=== PATIENT | male | born 1960 | race Caucasian/White ===

== ENCOUNTER 2020-11-17 14:11 | Emergency (ER) | payer OTHER ==
[~2020-11-17] VITALS: Ht 180.3 cm; Wt 97.5 kg
[2020-11-17 15:20] VITALS: BP 168/79
== END 2020-11-17 15:20 | disposition home or self-care (01) ==
LOC: ER 14:11
DX: U07.1 COVID-19 (principal); B20 Human immunodeficiency virus [HIV] disease; I10 Essential (primary) hypertension; E78.5 Hyperlipidemia, unspecified

== ENCOUNTER 2020-11-20 22:02 | Inpatient (IN) | payer OTHER ==
[~2020-11-20] VITALS: Ht 180.3 cm; Wt 103.9 kg
[2020-11-20 22:09] VITALS: BP 113/69
[2020-11-20 23:14] LABS: HEMATOCRIT 50.1 % (42.0-52.0); HEMOGLOBIN 17.2 gm/dL (14.0-18.0); MCH 33.1 pg (26.0-34.0); MCHC 34.3 g/dL (28.0-37.0); MCV 96.7 fL (80.0-100.0); RBC 5.18 mil/uL (4.50-6.00); RDW 13.6 % (10.5-14.5); WBC 5.8 thou/uL (4.0-11.0)
[2020-11-20 23:17] LABS: ANION GAP 11 mmol/L (7-16); BUN 24 mg/dL (7-18); CALCIUM 8.7 mg/dL (8.5-10.1); CHLORIDE 90 mmol/L (98-107); CO2 28 mmol/L (21-32); CREATININE 1.9 mg/dL (0.7-1.3); GLUCOSE 323 mg/dL (74-106); POTASSIUM 4.4 mmol/L (3.5-5.1); SODIUM 129 mmol/L (136-145)
[2020-11-20 23:27] LABS: TROPONIN-I <0.06 ng/mL (<0.06)
[2020-11-21 14:49] VITALS: BP 127/76
[2020-11-21 16:11] VITALS: BP 134/802
[2020-11-21 20:50] LABS: ALBUMIN 2.9 g/dL (3.4-5.0); DIRECT BILIRUBIN 0.1 mg/dL (<0.1-0.2); TOTAL BILIRUBIN 0.4 mg/dL (0.2-1.0); TOTAL PROTEIN 7.1 g/dL (6.4-8.2)
[2020-11-21 21:34] VITALS: BP 1252/86
[2020-11-22 03:55] VITALS: BP 111/68
--- NOTE | 2020-11-22 05:51 | NUR ---
FOLLOWING POC WITH REMDESIVIR, ZOSIN, AND VANCO GIVEN. PT UP TO BATHROOM AD CHRISTIE. VSS OVERNIGHT WITH NO FEVERS AND REMAINS ON 3L VIA NC. PT IS IN GOOD SPIRITS AND HAS NO COMPLAINTS.
[2020-11-22 06:11] LABS: HEMATOCRIT 44.3 % (42.0-52.0); MCH 32.9 pg (26.0-34.0); MCV 96.9 fL (80.0-100.0); RBC 4.58 mil/uL (4.50-6.00); RDW 13.7 % (10.5-14.5); WBC 8.2 thou/uL (4.0-11.0)
[2020-11-22 06:30] LABS: HEMOGLOBIN 15.1 gm/dL (14.0-18.0)
[2020-11-22 06:35] LABS: ALBUMIN 2.9 g/dL (3.4-5.0); CALCIUM 8.5 mg/dL (8.5-10.1); CREATININE 1.6 mg/dL (0.7-1.3); POTASSIUM 4.6 mmol/L (3.5-5.1); TOTAL BILIRUBIN 0.4 mg/dL (0.2-1.0)
--- NOTE | 2020-11-22 07:17 | EKG ---
[place] [address] [facility] [place] [address] ELECTROCARDIOGRAM REPORT Name: DEB ELLER Room #: 360-P ADM IN M.R.#: [id number] Admission: 11/21/20 Attend Phys: Lucy Heaton Discharge: Date of : 58 Report #: [id number] [facility] ED Test Date: 2020-11-20 Test Time: 22:08:12 Pat Name: DEB ELLER Department: Room: 360 Gender: M Business Process Consultant: [facility] : 1960 Requested By: Mike Nieves Order Number: [id number] MD: Franklin Perez Measurements Intervals [place] Rate: 107 P: 47 [place]: 144 QRS: 11 QRSD: 76 T: 64 QT: 347 QTc: 463 Interpretive Statements Sinus tachycardia Probable left atrial enlargement Abnormal R-wave progression, late transition Baseline wander in lead(s) V2 No previous ECG available for comparison Electronically Signed On 11-22-2020 7:17:25 [employer] by Franklin Perez [email or web address] <ELECTRONICALLY SIGNED> By: Franklin Perez MD, [facility] 11/22/20 0717 07 Franklin Perez MD, FACC /EPI
--- NOTE | 2020-11-22 07:42 | HC ---
[facility] [address] [place] [address] CONSULTATION Name: DEB ELLER Room #: 360-P ADM IN M.R.#: [id number] Admission: 11/21/20 Attend Phys: Lucy Heaton Discharge: Date of : 58 Report #: [id number] THIS REPORT FOR: cc: KEILY - Robyn family physician/PCP KEILY - No family physician/PCP Darwin Coello MD ~ DATE OF SERVICE: 11/21/2020 INFECTIOUS DISEASE CONSULTATION ATTENDING PHYSICIAN: Dr. Heaton. REASON FOR EVALUATION: COVID-19 infection, complicated by pneumonitis, respiratory failure, also HIV. HISTORY OF PRESENT ILLNESS: Chart reviewed, patient examined. This is a 60-year-old gentleman who was actually primary residence in [place], who developed dyspnea with progressive cough, fever, flu-like symptoms over the course of last several days. He was evaluated in the Emergency Room previously on the , however, due to worsening signs and symptoms did return. He was given supplemental oxygen at 2 liters, which helped his saturations which were borderline. He is clinically feeling better. Additional evaluation noted chest x-ray with bilateral interstitial infiltrates. He was found to be hyponatremic with sodium of 129 and creatinine was elevated at 1.9, glucose is 323. Initiated therapy with vancomycin, Zosyn as well as given doses of dexamethasone, methylprednisolone. In review of his HIV status, he does have CD4 count well within normal range, although he does have a measurable viral load and had a recent change of his HAART therapy to Prezcobix and Biktarvy. ALLERGIES: None known. CURRENT MEDICATIONS: Includes the above-noted Biktarvy, Prezcobix as well as Zosyn, vancomycin, subcutaneous heparin, ascorbic acid, pantoprazole, zinc, acetaminophen, ondansetron as needed. PAST MEDICAL HISTORY: As described above, history of HIV as well as hypertension, hyperlipidemia. SOCIAL HISTORY: No illicit drug use. No tobacco or ethanol use. FAMILY HISTORY: Noncontributory. REVIEW OF SYSTEMS: Otherwise, unremarkable. PHYSICAL EXAMINATION: [facility] [address] [place] [address] CONSULTATION Name: DEB ELLER Room #: 360-[facility] IN M.R.#: [id number] Admission: 11/21/20 Attend Phys: Lucy Heaton Discharge: Date of : 58 Report #: [id number] GENERAL: He is pleasant, alert, cooperative, in mild distress. He appears to be well nourished. VITAL SIGNS: Recently temperature of 100.1, pulse 86, respirations 28, blood pressure 122/71. SKIN: Warm, dry, no rashes. HEENT: Normocephalic. Extraocular muscles intact. His nasal cannula in place. NECK: Supple. LUNGS: Diminished breath sounds. Few scattered crackles. HEART: Regular. I do not appreciate a murmur. ABDOMEN: Soft, nontender, nondistended. EXTREMITIES: No cyanosis. GENITOURINARY AND RECTAL: Deferred. LABORATORY DATA: MRSA PCR screen was negative. Sed rate of 26. Procalcitonin of 0.3. Ferritin 931. COVID antigen was positive. Electrolytes: Sodium 129, potassium 4.4, chloride 90, bicarbonate is 28, anion gap of 11, BUN and creatinine 24 and 1.9. Estimated GFR of 36. Chest x-ray as described above. CBC: White count of 5.8, H and H 17.2 and 50.1, platelets of 129. ASSESSMENT AND PLAN: COVID-19 infection, complicated by pneumonitis and respiratory failure. Secondly, he has human immunodeficiency virus well managed, although had a recent change in regimen. We will continue therapy directed at the coronavirus. We will add ivermectin, remdesivir as well as vitamins including cholecalciferol and thiamine, addition to the ascorbic acid and zinc. At this point, he is not overtly toxic, but certainly there was a concern about possible diabetes as well. We will check hemoglobin A1c and likely continue corticosteroids. Monitor expectantly. Continue supportive care with supplemental oxygen as required. <ELECTRONICALLY SIGNED> By: Darwin Coello MD 11/22/20 0742 1608 27 Darwin Coello MD /nt
[2020-11-22 08:19] VITALS: BP 118/76
[2020-11-22 11:53] VITALS: BP 120/71
[2020-11-22] MEDS ORDERED: LISINOPRIL-HCT1 EAC2 PO (12:53)
[2020-11-22] MEDS ORDERED: ROSUVASTATIN CA20 MG PO (12:55)
[2020-11-22] MEDS ORDERED: VALTREX 500 MG500 M1 (12:57)
[2020-11-22] MEDS ORDERED: PREZCOBIX 8001 EACH (12:59)
[2020-11-22] MEDS ORDERED: BIKTARVY 50-201 EACH (13:00)
--- NOTE | 2020-11-22 14:40 | NUR ---
INITIAL ASSESSMENT: MERCEDES reviewed chart and spoke with nursing and attending physician. Pt was admitted from home due to pneumonia. Pt placed in Enhanced Isolation due to COVID-19. Pt has tested positive last week. Pt is requiring 5L of O2. Pt is on IV abx and IV steroids. Pt is completing courses of Remdesivir and Ivermectin. MERCEDES spoke with pt via phone. Introduced role of SW. Pt is alert/orientated x 4. Pt reports he lives in [place] and has plans to go back on 11/27. However, pt is able to stay in longer if needed. Prior to admission, pt was independent with ADLs. No use of DME. No hx of services or post-acute placement. Pt was not on O2 prior to admission. Will need rest/exercise oximtery to determine home O2 needs. Plan is for pt to discharge home when medically stable. MERCEDES is following to assist as needed with discharge planning.
[2020-11-22 15:46] VITALS: BP 113/72
--- NOTE | 2020-11-22 17:18 | NUR ---
RN ASSUMED PT'S CARE AT 0700AM, PT IS A&OX3, PT IS ON O2 4-6L/MIN/NC TO KEEP O2 SAT >92%, PT HAS SOB WITH ACTIVITIES. PT IS CONTINUING IV ABX, RN HAS CALLED DR TO REPORT PT'S BS 400-500, NEW ORDER HAS RECEIVED, PT CAN GET UP TO BATH ROOM BY HIMSELF.
[2020-11-22 20:41] VITALS: BP 112/72
[2020-11-22 23:07] LABS: GLYCOHEMOGLOBIN (HGB A1C) 8.4 % (4.8-5.6)
[2020-11-23 03:30] VITALS: BP 123/88
[2020-11-23 06:20] LABS: HEMOGLOBIN 14.8 gm/dL (14.0-18.0); MCH 32.7 pg (26.0-34.0); MCHC 33.6 g/dL (28.0-37.0); MCV 97.4 fL (80.0-100.0); RBC 4.52 mil/uL (4.50-6.00); RDW 13.6 % (10.5-14.5); WBC 9.1 thou/uL (4.0-11.0)
[2020-11-23 06:52] LABS: ALBUMIN 2.8 g/dL (3.4-5.0); CALCIUM 8.5 mg/dL (8.5-10.1); CREATININE 1.6 mg/dL (0.7-1.3); DIRECT BILIRUBIN 0.1 mg/dL (<0.1-0.2); PHOSPHORUS 4.3 mg/dL (2.5-4.9); POTASSIUM 4.3 mmol/L (3.5-5.1); TOTAL BILIRUBIN 0.4 mg/dL (0.2-1.0); TOTAL PROTEIN 6.8 g/dL (6.4-8.2)
--- NOTE | 2020-11-23 07:34 | NUR ---
FOLLOWING POC WITH IVPB ANTIBIOTICS AND COVID CARE PLAN. VSS OVERNIGHT. BLOOD SUGARS DECREASE FROM PREVIOUS HIGHS IN MID AFTERNOON. NO FEVERS. PT STILL HAS A VERY PERSISTENT DRY COUGH BEING MANAGED WITH TESSON PEARLS AND LIQUID COUGH SYRUP. PT HAS NO COMPLAINTS.
[2020-11-23 07:50] VITALS: BP 117/78
[2020-11-23] MEDS ORDERED: FREESTYLE LIBR1 EAC2 MISCELL (08:54)
[2020-11-23 13:08] VITALS: BP 152/80
[2020-11-23 16:30] VITALS: BP 109/72
--- NOTE | 2020-11-23 16:46 | NUR ---
RN ASSUMED PT'S CARE AT 0700AM, PT IS A&OX3, PT IS CONTINING IV ABX, RN HAS CALLED DR TO REPORT PT NEED MORE O2 TO 10L/MIN/NC TO KEEP O2SAT AT 91-94%, NEW ORDER RECEIVED, PT DENIES PAIN AT THIS TIME.
[2020-11-23 20:32] VITALS: BP 109/67
[2020-11-24 04:39] VITALS: BP 106/74
[2020-11-24 04:47] LABS: ALBUMIN 2.9 g/dL (3.4-5.0); CALCIUM 8.5 mg/dL (8.5-10.1); CREATININE 1.8 mg/dL (0.7-1.3); DIRECT BILIRUBIN 0.1 mg/dL (<0.1-0.2); PHOSPHORUS 4.6 mg/dL (2.5-4.9); TOTAL BILIRUBIN 0.4 mg/dL (0.2-1.0)
--- NOTE | 2020-11-24 04:58 | NUR ---
denies pain, up to rest room with steady gait. continuous pulse ox keeping o2 sats around low 90's. resting quietly. he is comfortable with his breathing.
[2020-11-24 08:00] VITALS: BP 113/70
[2020-11-24 11:45] VITALS: BP 117/78
[2020-11-24 16:38] VITALS: BP 121/81
--- NOTE | 2020-11-24 17:11 | NUR ---
RN ASSUMED PT'S CARE AT 0700AM, PT IS A&OX3, PT IS CONTINUING O2 10-11L/MIN/NC TO KEEP O2SAT 90-94%, RN HAS REPORTED TO DR ABOUT PT NEEDS MORE O2 AND ABNORMAL CHEST X-RAY RESULTS, NEW ORDER RECEIVED, STARTING LASIX 40MG IV BID , PT'S O2SAT IS REDUCED TO 88-90% WITH PT'S ACTIVITIES , PT GETS UP TO BSC AND BATH ROOM BY HIMSELF.PT'S IV ABX HAS SOME CHANGED SINCE YESTODAY, WE ARE CONTINUING TO MONITOR PT.
[2020-11-24 21:04] VITALS: BP 125/77
[2020-11-25 04:01] VITALS: BP 111/70
--- NOTE | 2020-11-25 04:26 | NUR ---
Slept fair during the night. Maintaining O2 sat in the low to mid 90's on 10L/HF. Reported shortness of breath with exertion. Cont. on enhanced precaution , afebrile. Up ad chan in room with steady gait.
[2020-11-25 06:23] LABS: HEMATOCRIT 46.1 % (42.0-52.0); HEMOGLOBIN 15.4 gm/dL (14.0-18.0); MCH 32.6 pg (26.0-34.0); MCHC 33.5 g/dL (28.0-37.0); MCV 97.5 fL (80.0-100.0); RBC 4.73 mil/uL (4.50-6.00); RDW 13.7 % (10.5-14.5); WBC 7.9 thou/uL (4.0-11.0)
[2020-11-25 06:46] LABS: ALBUMIN 2.7 g/dL (3.4-5.0); CALCIUM 8.5 mg/dL (8.5-10.1); CREATININE 1.5 mg/dL (0.7-1.3); DIRECT BILIRUBIN 0.1 mg/dL (<0.1-0.2); PHOSPHORUS 4.2 mg/dL (2.5-4.9); TOTAL BILIRUBIN 0.4 mg/dL (0.2-1.0); TOTAL PROTEIN 6.7 g/dL (6.4-8.2)
[2020-11-25 08:01] VITALS: BP 131/65
[2020-11-25 11:29] VITALS: BP 126/70
[2020-11-25 15:25] VITALS: BP 127/84
--- NOTE | 2020-11-25 18:17 | NUR ---
ASSUMED PATIENT CARE AT 0700. A/O X4. ON 15L HIGH FOLLOW SAT 87-90. DR RESENDEZ ORDERED BIPAP BUT PATIENT STILL PERFER ON HIGH FOLLOW O2. DENIES PAIN. AMPULATED IN ROOM. WILL KEEP MONITOR.
[2020-11-25 19:48] VITALS: BP 120/78
--- NOTE | 2020-11-26 04:43 | NUR ---
Pt. feeling a little anxious at HS. He requested med to help him relax , alprazolam given x 1 with good results. He slept better. Cont. on enhanced precaution , afebrile. Maintaining O2 sat in the mid 90's at rest and low 90's on 15L/HF. Shortness of breath with minimal exertion. Voiding per urinal.
[2020-11-26 05:20] VITALS: BP 107/71
[2020-11-26 06:45] LABS: HEMATOCRIT 47.5 % (42.0-52.0); HEMOGLOBIN 15.6 gm/dL (14.0-18.0); MCH 32.3 pg (26.0-34.0); MCHC 32.9 g/dL (28.0-37.0); MCV 98.1 fL (80.0-100.0); RBC 4.84 mil/uL (4.50-6.00); RDW 13.8 % (10.5-14.5); WBC 9.2 thou/uL (4.0-11.0)
[2020-11-26 07:06] LABS: ALBUMIN 2.8 g/dL (3.4-5.0); CALCIUM 8.8 mg/dL (8.5-10.1); CREATININE 1.4 mg/dL (0.7-1.3); MAGNESIUM 2.6 mg/dL (1.8-2.4); POTASSIUM 3.7 mmol/L (3.5-5.1); TOTAL BILIRUBIN 0.5 mg/dL (0.2-1.0); TOTAL PROTEIN 6.7 g/dL (6.4-8.2)
[2020-11-26 08:26] VITALS: BP 118/63
[2020-11-26 11:25] VITALS: BP 108/70
--- NOTE | 2020-11-26 14:29 | NUR ---
SW reviewed chart and spoke with nursing and attending physician. Pt remains in Enhanced Isolation due to COVID-19. Pt is afebrile and was on 15L of O2. Pt placed on bipap earlier today. Pt is on IV abx, IV steroids and IV lasix. Pt will need therapy evals when able to participate. Pt was living at home prior to admission. MERCEDES is following to assist as needed with discharge planning.
[2020-11-26 15:35] VITALS: BP 112/71
--- NOTE | 2020-11-26 18:24 | NUR ---
ASSUMED PATIENT CARE AT 0700. A/O X4. NOT TOLERATED ON 15L/NC. PATIENT ON 80% FIO2 BIPAP MOST OF DAY. AMBULATED IN ROOM. WILL KEEP MONITOR.
[2020-11-26 19:41] VITALS: BP 128/77
[2020-11-27 04:15] VITALS: BP 129/72
--- NOTE | 2020-11-27 05:29 | NUR ---
Pt. stated he slept well last night. Maintaining O2 sat in the low 90's up to 96% on BIPAP at 80% FIO2. He requested to be off BIPAP this am , placed back on 15L/HF. RT notified. Pt. gets short of breath with exertion. Cont. on enhanced precaution , afebrile.
[2020-11-27 07:19] VITALS: BP 124/79
[2020-11-27 11:44] VITALS: BP 101/65
[2020-11-27 15:19] VITALS: BP 108/66
--- NOTE | 2020-11-27 15:32 | NUR ---
SW reviewed chart and spoke with nursing and attending physician. Pt remains in Enhanced Isolation due to COVID-19. Pt is afebrile and requiring bipap support. Pt is on IV abx, IV steroids and IV lasix. Pt will need therapy evals when able to participate. SW is following to assist as needed with discharge planning.
--- NOTE | 2020-11-27 17:25 | NUR ---
ASSUMED CARE OF PT AT 0700. PT ALERT AND ORIENTED X4 IN NO ACUTE DISTRESS. REPORTS IMPROVEMENT IN HIS BREATHING. REMAINS ON 15L NC. GOOD URINE OUTPUT. PT PROGRESSING TOWARD POC GOALS. WCM.
[2020-11-27 19:24] VITALS: BP 118/73
--- NOTE | 2020-11-27 23:58 | NUR ---
PT RESTING IN BED WATCHING TV. O2 NC 15L PT SOA WITH TALKING. SMILING. LUNGS LL CRACKLES. TRACE BLE EDEMA. PT DECLINED HS SNACK. PT TOOK HOME MEDS. PT REQUESTED BIPAP FOR HS SLEEP AND RT NOTIFIED.
[2020-11-28 04:33] VITALS: BP 127/87
[2020-11-28 06:43] LABS: ALBUMIN 2.4 g/dL (3.4-5.0); CALCIUM 8.2 mg/dL (8.5-10.1); CREATININE 1.6 mg/dL (0.7-1.3); PHOSPHORUS 4.4 mg/dL (2.6-4.7); POTASSIUM 3.6 mmol/L (3.5-5.1)
[2020-11-28 08:18] VITALS: BP 106/62
[2020-11-28 11:15] VITALS: BP 113/69
--- NOTE | 2020-11-28 12:59 | NUR ---
Pt seen for LOS. Pt with good appetite, consuming avg of 70% at meal times since admission. Weights have varied some since admission but remain stable. No c/o GI distress at present. No pressure ulcers noted. Pt is low nutrition risk.
--- NOTE | 2020-11-28 15:43 | NUR ---
SW reviewed chart and spoke with nursing and attending physician. Pt remains in Enhanced Isolation due to COVID-19. Pt is afebrile and requiring bipap support. Pt is on IV abx and IV steroids. SW requested therapy evals to be ordered to assist with recommendations for discharge needs. SW is following to assist as needed with discharge planning.
[2020-11-28 15:55] VITALS: BP 114/76
--- NOTE | 2020-11-28 18:35 | NUR ---
PATIENT TOLERATED ON 15/NC WITH ACTIVITY. PROGRESSING TOWARDS POC GOALS.
[2020-11-28 19:30] VITALS: BP 130/78
--- NOTE | 2020-11-28 22:04 | NUR ---
PT VERBALIZING IMPROVEMENT IN FEELING BETTER. PT REMAINS ON 15L. PT IS STANDING IN ROOM AND USING IS HOURLY. PT NOT SOA WITH CONVERSATION. PT DOES DESAT WITH AMBULATION UPPER 80S. PT STATED HE WILL NOT RETURN TO [facility] BUT REMAIN IN [place], SINCE THE NEWS IS REPORTING A DECREASE IN 02 IN [facility]. PT HAD HS SNACK.
[2020-11-29 04:40] VITALS: BP 119/82
[2020-11-29 07:58] VITALS: BP 114/76
[2020-11-29 11:55] VITALS: BP 121/61
--- NOTE | 2020-11-29 14:45 | NUR ---
MERCEDES reviewed chart and spoke with nursing and attending physician. Pt remains in Enhanced Isolation due to COVID-19. Pt is afebrile and on 12-15L of O2. Pt is on IV abx, IV steroids and IV lasix. MERCEDES placed call to Aleyda at [facility] ( ) to discuss in-network providers, should pt need home O2 or HH services when discharged. Unsure of discharge timeframe. MERCEDES placed call to pt's room. No answer. Per chart, pt plans on staying in [place] area after discharge before returning to [place]. MERCEDES is following to assist as needed with discharge planning.
[2020-11-29 16:41] VITALS: BP 117/65
--- NOTE | 2020-11-29 18:13 | NUR ---
ASSUMED PATIENT CARE AT 0700. A/O X4. TITRATED O2 TO 9L/NC TOLERATED WELL. AMBULATED IN ROOM . PROGRESSING TOWARDS POC GOALS.
[2020-11-29 20:47] VITALS: BP 106/56
--- NOTE | 2020-11-30 04:17 | NUR ---
wearing bipap as ordered at bedtime. he has been cooperative with wearing this tonight. denies pain. encouraged questions. dereck mijares
[2020-11-30 04:25] VITALS: BP 110/75
[2020-11-30 07:47] VITALS: BP 120/77
[2020-11-30 11:26] VITALS: BP 109/57
[2020-11-30 15:50] VITALS: BP 97/69
--- NOTE | 2020-11-30 18:34 | NUR ---
TITRATED 02 TO 5L/NC. TOLERATED WELL. PROGRESSING TOWARDS POC GOALS.
[2020-11-30 20:29] VITALS: BP 123/61
--- NOTE | 2020-12-01 03:52 | NUR ---
ASSESSED PT. PT A&OX4. MARYELLEN OXYGEN AND DOING INCENTIVE SPIROMETER TREATMENT. PT STATED FEELING MUCH BETTER AND HAPPY OF PROGRESS. WEARS BIPAP AT NIGHT TIME. BSG CHECKED AND INSULIN GIVEN. UP AD CHRISTIE IN THE ROOM. CALL LIGHT AT REACH WILL CONT TO MONITOR.
[2020-12-01 04:46] VITALS: BP 112/73
[2020-12-01 07:45] VITALS: BP 118/79
[2020-12-01 11:31] VITALS: BP 96/62
[2020-12-01 15:30] VITALS: BP 111/63
--- NOTE | 2020-12-01 15:55 | NUR ---
assumed care of pt at 0700. pt aox4 in no acute distress. on bipap overnight. currently maintaining spo2 on 5-8L NC. pt reports feeling like he is continuing to improve. up ad chan w/ steady gait. slow progres toward poc goals.
[2020-12-01 20:25] VITALS: BP 117/63
[2020-12-02 05:59] VITALS: BP 123/78
--- NOTE | 2020-12-02 06:11 | NUR ---
VSS OVERNIGHT. O2 WAS AT 5L THEN PT WAS MOVED OVER TO BIPAP AT BEDTIME WITHOUT ANY ISSUES. PT UP AD CHRISTIE, AND IS PROGRESSING TOWARDS DC GOALS.
[2020-12-02 08:04] VITALS: BP 115/69
[2020-12-02 11:16] VITALS: BP 100/69
[2020-12-02 15:44] VITALS: BP 115/64
--- NOTE | 2020-12-02 17:26 | NUR ---
TITRATED 02 TO 4L/NC SAT 92%. PROGRESSING TOWARDS POC GOALS.
[2020-12-02 20:23] VITALS: BP 122/70
[2020-12-03 04:11] VITALS: BP 130/80
--- NOTE | 2020-12-03 07:11 | NUR ---
VSS, AFEBRILE, PT HAS NO COMPLAINTS. POC WITH 02 AT 4L WHILE SATS ARE MID TO HIGH 90'S. BIPAP WAS PLACED ON PT AT [phone]. CALL LIGHT WITHIN REACH.
[2020-12-03 07:52] VITALS: BP 116/86
[2020-12-03] MEDS ORDERED: ZINC SULFATE 2220 MG PO (08:44)
[2020-12-03] MEDS ORDERED: ACEROLA C500 MG PO (08:45)
[2020-12-03] MEDS ORDERED: GLYBURIDE 5 MG T5 M1 PO (08:45)
[2020-12-03] MEDS ORDERED: PROTONIX 20 MG20 M1 PO (08:45)
[2020-12-03] MEDS ORDERED: PREDNISONE 20 M20 M1 PO (08:45)
[2020-12-03 11:35] VITALS: BP 105/52
[2020-12-03 13:00] VITALS: BP 105/52
--- NOTE | 2020-12-03 13:37 | NUR ---
DISCHARGE NOTE: MERCEDES reviewed chart and spoke with nursing and attending physician. Pt is medically stable for discharge home today. Order written for Home O2 at 4L continuously. MERCEDES spoke with Aleyda at [facility], who states that [facility] is one of their preferred providers. Pt to remain in the area for a while after discharge until he is strong enough to return home to [place]. Pt will be able to transfer service from the branch to the branch closest to him in [place]. Pt to be staying at [address] [place] [address]. MERCEDES placed call to pt's room to discuss discharge plan. No answer. MERCEDES left voice message on pt's cell phone: [phone]. MERCEDES faxed clinical info and script to [facility] and confirmed info was received with liaison. Awaiting input from [facility] if they need rest/exercise oximetry study to be completed. Pt's insurance may require the results if the waiver has not been extended. MERCEDES updated pt's nurse. Contact info for [facility] placed in pt's discharge summary. MERCEDES is following to finalize discharge.
--- NOTE | 2020-12-03 18:04 | NUR ---
progressing towards poc goals. dc home now
== END 2020-12-03 18:06 | disposition home or self-care (01) | DRG 871 ==
LOC: ER 22:02 → 3W 11-21 00:51 → EROBS 11-21 00:51 → 3W 11-21 15:59
PROVIDERS: Emergency Medicine; Nurse Practitioner Family; Specialist; ADMIT Hospitalist; ATTEND Hospitalist
DX: A41.89 Other specified sepsis (principal); U07.1 COVID-19; J80 Acute respiratory distress syndrome; J12.82 Pneumonia due to coronavirus disease 2019; E87.1 Hypo-osmolality and hyponatremia; N17.9 Acute kidney failure, unspecified; I10 Essential (primary) hypertension; I25.10 Atherosclerotic heart disease of native coronary artery without angina pectoris; E11.65 Type 2 diabetes mellitus with hyperglycemia; Z21 Asymptomatic human immunodeficiency virus [HIV] infection status; E78.5 Hyperlipidemia, unspecified; Z79.899 Other long term (current) drug therapy; Z79.4 Long term (current) use of insulin
CPT/HCPCS: 10879